=== PATIENT | female | born 1965 | race Caucasian/White ===

== ENCOUNTER 2017-12-29 00:07 | Emergency (ER) | payer BC ==
[~2017-12-29] VITALS: Ht 152.4 cm; Wt 68.0 kg
[~2017-12-29 00:07] MED LIST: NORC7.5T PO; ORPH100T PO
[2017-12-29] MEDS ORDERED: IOHEXOL 350 MG/ML 10 ML VIAL (for RAD DIAG) IVCONTRAST ONE (00:08)
[2017-12-29 00:09] VITALS: BP 139/81; PULSE 59; RESP 18; TEMP 97.5; O2SAT 100
[2017-12-29] MEDS ORDERED: SODIUM CHLOR 0.9% 1000 ML INJ 1,000 ML IV SCH (00:41)
[2017-12-29] MEDS ORDERED: SODIUM CHLORIDE 0.9% FLUSH 10 ML FLUSH IV FLUSH PRN (00:45)
[2017-12-29] MEDS ORDERED: ONDANSETRON HCL 4 MG/2 ML VIAL IVP ONE (00:45)
[2017-12-29] MEDS ORDERED: HYDROmorphone HCL PF 2 MG/ML VIAL IVS ONE (00:45)
--- NOTE | 2017-12-29 00:48 | PD ---
HPI Chief Complaint: Abdominal Pain Time Seen by Provider: 00:35 Travel History International Travel<30 days: No Contact w/Intl Traveler<30days: No Traveled to known affect area: No History of Present Illness HPI The patient is a 52-year-old female who complains of right flank/right upper quadrant pain for a week. She states she has had her gallbladder out but she has occasional episodes were stones form and the ducts and she has this pain. The pain is sharp, aching and the level of 9/10. She has been nauseated and vomited for the first time yesterday afternoon. She denies vomiting any blood. PFSH Past Medical History Arthritis: Yes (GENEVIEVE OF FINGERS) Blood Disorders: No Anxiety: No Depression: No Cancer: No Cardiovascular Problems: No High Cholesterol: Yes (Mgmt with diet) Diminished Hearing: No Endocrine: No Gastrointestinal Disorders: Yes (CAN'T TAKE ANYTHING ON EMPTY STOMACH, VOMITS IMMEDIATELY) GERD: Yes Genitourinary: Yes Neurologic: No Psychiatric: No Respiratory: No Tetanus Vaccination: Unknown Influenza Vaccination: Yes ?: Not Past Surgical History Abdominal Surgery: Yes (GALL BLADDER) Section: Yes Cholecystectomy: Yes Gynecologic Surgery: Yes (X2 C-SECTIONS) Oral Surgery: Yes (TONSILS) Tonsillectomy: Yes Social History Alcohol Use: No Tobacco Use: No Substance Use: No Allergies-Medications (Allergen,Severity, Reaction): Coded Allergies: No Known Allergies (Verified Allergy, Unknown, 12/29/17) Reported Meds & Prescriptions Reported Meds & Active Scripts Active Prochlorperazine Maleate 10 Mg Tab 10 Mg PO Q6H PRN Percocet (Oxycodone-Acetaminophen) 5-325 mg Tab 1-2 Tab PO Q4H PRN Norflex (Orphenadrine Citrate) 100 Mg Gladis 100 Mg PO BID Hammond 7.5-325 mg (Hydrocodone-Acetaminophen 7.5-325 mg) 7.5 Mg/325 Mg Tab 1 Tab PO Q4 PRN Review of Systems Except as stated in HPI: all other systems reviewed are Neg Physical Exam Narrative GENERAL: The patient is alert, oriented 3 in severe apparent distress with her abdominal discomfort. Her vital signs show temperature 97.5, pulse 59 but are otherwise normal. SKIN: Focused skin assessment warm/dry. HEAD: Atraumatic. Normocephalic. EYES: Pupils equal and round. No scleral icterus. No injection or drainage. ENT: No nasal bleeding or discharge. Mucous membranes pink and moist. NECK: Trachea midline. No JVD. CARDIOVASCULAR: Regular rate and rhythm. No murmur appreciated. RESPIRATORY: No accessory muscle use. Clear to auscultation. Breath sounds equal bilaterally. GASTROINTESTINAL: Abdomen soft, with tenderness to direct palpation in the right upper quadrant, nondistended. Hepatic and splenic margins not palpable. No guarding or rebound is present. MUSCULOSKELETAL: No obvious deformities. No clubbing. No cyanosis. No edema. NEUROLOGICAL: Awake and alert. No obvious cranial nerve deficits. Motor grossly within normal limits. Normal speech. PSYCHIATRIC: Appropriate mood and affect; insight and judgment normal. Data Data Last Documented VS Vital Signs Date Time Temp Pulse Resp B/P (MAP) Pulse Ox O2 Delivery O2 Flow Rate FiO2 12/29/17 01:42 87 16 101/55 (70) 96 Room Air 12/29/17 00:09 97.5 Orders Orders Complete Blood Count With Diff (12/29/17 00:41) Comprehensive Metabolic Panel (12/29/17 00:41) Lipase (12/29/17 00:41) Urinalysis - C+S If Indicated (12/29/17 00:41) Iv Access Insert/Monitor (12/29/17 00:41) Ecg Monitoring (12/29/17 00:41) Oximetry (12/29/17 00:41) Hydromorphone Pf Inj (Dilaudid Pf Inj) (12/29/17 00:45) Ondansetron Inj (Zofran Inj) (12/29/17 00:45) Sodium Chlor 0.9% 1000 Ml Inj (Ns 1000 M (12/29/17 00:41) Sodium Chloride 0.9% Flush (Ns Flush) (12/29/17 00:45) Ct Abd/Pel W Iv Contrast(Rout) (12/29/17 00:43) Ketorolac Inj (Toradol Inj) (12/29/17 01:00) Iohexol 350 Inj (Omnipaque 350 Inj) (12/29/17 00:08) Labs Laboratory Tests Test 12/29/17 00:25 White Blood Count 8.7 TH/MM3 Red Blood Count 4.61 MIL/MM3 Hemoglobin 14.0 GM/DL Hematocrit 42.3 % Mean Corpuscular Volume 91.8 FL Mean Corpuscular Hemoglobin 30.4 PG Mean Corpuscular Hemoglobin Concent 33.2 % Red Cell Distribution Width 13.2 % Platelet Count 251 TH/MM3 Mean Platelet Volume 9.8 FL Neutrophils (%) (Auto) 64.3 % Lymphocytes (%) (Auto) 26.5 % Monocytes (%) (Auto) 7.1 % Eosinophils (%) (Auto) 0.7 % Basophils (%) (Auto) 1.4 % Neutrophils # (Auto) 5.6 TH/MM3 Lymphocytes # (Auto) 2.3 TH/MM3 Monocytes # (Auto) 0.6 TH/MM3 Eosinophils # (Auto) 0.1 TH/MM3 Basophils # (Auto) 0.1 TH/MM3 CBC Comment DIFF FINAL Differential Comment Blood Urea Nitrogen 11 MG/DL Creatinine 0.62 MG/DL Random Glucose 111 MG/DL Total Protein 8.0 GM/DL Albumin 3.5 GM/DL Calcium Level 8.7 MG/DL Alkaline Phosphatase 419 U/L Aspartate Amino Transf (AST/SGOT) 256 U/L Alanine Aminotransferase (ALT/SGPT) 587 U/L Total Bilirubin 4.5 MG/DL Sodium Level 136 MEQ/L Potassium Level 3.6 MEQ/L Chloride Level 101 MEQ/L Carbon Dioxide Level 27.5 MEQ/L Anion Gap 8 MEQ/L Estimat Glomerular Filtration Rate 101 ML/MIN Lipase 238 U/L MDM Medical Decision Making Medical Screen Exam Complete: Yes Emergency Medical Condition: Yes Medical Record Reviewed: Yes Interpretation(s) The CBC is normal. The complete metabolic profile shows a total bilirubin of 4.5, AST of 256, ALT of 587 and alkaline phosphatase of 419 but is otherwise normal. The lipase is normal. The CT abdomen/pelvis with IV contrast shows a cholecystectomy with biliary ductal dilatation to about 1 cm. There is also mild intrahepatic biliary ductal dilatation. Also noted is a 2.6 cm left adnexal cystic appearing lesion. Differential Diagnosis Pancreatic ductal obstruction, liver ductal obstruction, urinary stone, urinary tract infection Narrative Course It is now 011 9 in the morning and the patient feels fine, she is completely free of pain and nausea. The fact that her liver enzymes are dramatically elevated indicates that she probably had a ductal obstruction within the liver. A suggestion of liver ductal obstruction is also made by the CAT scan with its dilated biliary ductal system. Diagnosis Primary Impression: Bile duct obstruction, intrahepatic Additional Instructions: As we discussed, Call your roofing contractor Saturday morning. Do not drink alcohol or drive if you take the Percocet. The Compazine can also make you somewhat sleepy and dizzy. Avoid fatty foods. Make sure you drink plenty of clear liquids. If the pain recurs, return to the emergency department. Med/Other Pt SpecificInfo: Prescription(s) given Scripts Prochlorperazine Maleate (Prochlorperazine Maleate) 10 Mg Tab 10 MG PO Q6H Y for NAUSEA OR VOMITING, #30 TAB 0 Refills Prov: Chris Mcfadden MD 12/29/17 Oxycodone-Acetaminophen (Percocet) 5-325 mg Tab 1-2 TAB PO Q4H Y for PAIN, #30 TAB 0 Refills Prov: Chris Mcfadden MD 12/29/17 Disposition: 01 DISCHARGE HOME Condition: Stable Chris Mcfadden MD Dec 29, 2017 00:48
[2017-12-29] MEDS ORDERED: KETOROLAC TROMETHAMINE 60 MG/2 ML (IM) VIAL IVP ONE (01:00)
[2017-12-29 01:06] LABS: AUTOMATED NEUTROPHIL # 5.6 TH/MM3 (1.8-7.7); BASOPHIL # 0.1 TH/MM3 (0-0.2); BASOPHIL % 1.4 % (0.0-2.0); EOSINOPHIL # 0.1 TH/MM3 (0-0.4); EOSINOPHIL % 0.7 % (0.0-4.0); HEMATOCRIT 42.3 % (35.0-46.0); LYMPH % 26.5 % (9.0-44.0); LYMPHOCYTE # 2.3 TH/MM3 (1.0-4.8); MEAN CELL VOLUME 91.8 FL (80.0-100.0); MEAN CORPUSCULAR HEMOGLOBIN 30.4 PG (27.0-34.0); MEAN CORPUSCULAR HGB CONC 33.2 % (32.0-36.0); MEAN PLATELET VOLUME 9.8 FL (7.0-11.0); MONO % 7.1 % (0.0-8.0); MONOCYTE # 0.6 TH/MM3 (0-0.9); NEUT % 64.3 % (16.0-70.0); PLATELET COUNT 251 TH/MM3 (150-450); RED BLOOD COUNT 4.61 MIL/MM3 (4.00-5.30); RED CELL DISTRIBUTION WIDTH 13.2 % (11.6-17.2); WHITE BLOOD COUNT 8.7 TH/MM3 (4.0-11.0)
[2017-12-29 01:09] VITALS: BP 154/81; PULSE 69; RESP 16; O2SAT 100
[2017-12-29 01:14] LABS: CHLORIDE 101 MEQ/L (98-107); SODIUM (NA) 136 MEQ/L (136-145)
[2017-12-29 01:18] LABS: ALBUMIN 3.5 GM/DL (3.4-5.0); BICARBONATE 27.5 MEQ/L (21.0-32.0); CALCIUM 8.7 MG/DL (8.5-10.1); GLUCOSE,RANDOM 111 MG/DL (74-106)
[2017-12-29 01:19] LABS: BLOOD UREA NITROGEN 11 MG/DL (7-18)
[2017-12-29 01:21] LABS: ALT (GPT) 587 U/L (10-53); AST (GOT) 256 U/L (15-37); CREATININE 0.62 MG/DL (0.50-1.00); GLOMERULAR FILTRATION RATE 101 ML/MIN (>89)
[2017-12-29 01:23] LABS: TOTAL BILIRUBIN ADULT 4.5 MG/DL (0.2-1.0)
[2017-12-29 01:24] LABS: ALKALINE PHOSPHATASE 419 U/L (45-117)
[2017-12-29 01:42] VITALS: BP 101/55; PULSE 87; RESP 16; O2SAT 96
[2017-12-29] MEDS ORDERED: PROC10TA PO (01:46)
[2017-12-29] MEDS ORDERED: PERC5TAB12 PO (01:46)
--- NOTE | 2017-12-29 02:04 | RADRPT ---
EXAM DATE/TIME: 12/29/2017 01:26 [facility] COMPARISON: No previous studies available for comparison. INDICATIONS : Patient complains of right flank and right upper quadrant pain for one week. IV CONTRAST: 90 cc Omnipaque 350 (iohexol) IV ORAL CONTRAST: No oral contrast ingested. RADIATION DOSE: 10.14 CTDIvol (mGy) MEDICAL HISTORY : Hypercholesterolemia. SURGICAL HISTORY : Cholecystectomy. ENCOUNTER: Initial ACUITY: 1 week PAIN SCALE: 9/10 LOCATION: Right flank upper quad TECHNIQUE: Volumetric scanning of the abdomen and pelvis was performed. Using automated exposure control and ad justment of the mA and/or kV according to patient size, radiation dose was kept as low as reasonably achievable to obtain optimal diagnostic quality images. DICOM format image data is available electro nically for review and comparison. FINDINGS: Lung bases are clear. Spleen, adrenals, kidneys and pancreas unremarkable. Previous cholecystectomy w ith biliary ductal dilatation. Common bile duct measures up to about 1 cm diameter. No free fluid. No bowel obstruction. No adenopathy. Small fat containing umbilical hernia. Within the pelvis there is a 2.6 cm left adnexal cystic appearing lesion. No other pelvic mass. No fr ee fluid or free air. CONCLUSION: 1. 2.6 cm left adnexal cyst. 2. Cholecystectomy with biliary ductal dilatation to about 1 cm. There is also mild intrahepatic bili blas ductal dilatation. Fortunato Dotson MD on December 29, 2017 at 1:58 Board Certified Radiologist. This report was verified electronically.
[2017-12-29 02:49] VITALS: BP 96/56
== END 2017-12-29 02:59 | disposition home or self-care (01) ==
LOC: PHED 00:07
DX: K83.1 Obstruction of bile duct (principal); E78.00 Pure hypercholesterolemia, unspecified; K21.9 Gastro-esophageal reflux disease without esophagitis; Z79.899 Other long term (current) drug therapy
CPT/HCPCS: 74177; 80053; 83690; 85025; 96361; 96374; 96375; 99284; J1170; J1885; J2405; J7030; Q9967

== ENCOUNTER 2017-12-29 20:55 | Inpatient (IN) | payer BC ==
[~2017-12-29] VITALS: Ht 152.4 cm; Wt 70.0 kg
[~2017-12-29 20:55] MED LIST changes: +PERC5TAB12 PO; +PROC10TA PO
[2017-12-29 20:59] VITALS: BP 153/91; PULSE 61; RESP 20; TEMP 97.7; O2SAT 100
[2017-12-29] MEDS ORDERED: ONDANSETRON HCL 4 MG/2 ML VIAL IVP ONE (21:15)
[2017-12-29] MEDS ORDERED: SODIUM CHLORIDE 0.9% FLUSH 10 ML FLUSH IV FLUSH PRN (21:15)
[2017-12-29] MEDS ORDERED: SODIUM CHLOR 0.9% 1000 ML INJ 1,000 ML IV SCH (21:15)
[2017-12-29] MEDS ORDERED: HYDROmorphone HCL PF 2 MG/ML VIAL IVS ONE (21:15)
--- NOTE | 2017-12-29 21:17 | PD ---
HPI Chief Complaint: Abdominal Pain Time Seen by Provider: 21:06 Travel History International Travel<30 days: No Contact w/Intl Traveler<30days: No Traveled to known affect area: No History of Present Illness HPI The patient is a 52-year-old female who was seen yesterday and was found to have intrahepatic biliary obstruction. She complains of abdominal pain that began at 2:30 PM this afternoon. After the pain medication yesterday she was pain-free and wanted to go home. She is willing to be admitted at this time. 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 Thompson. Her primary care physician is Dr. Toussaint. The patient had a cholecystectomy approximately 20 years ago. PFSH Past Medical History Arthritis: Yes (GENEVIEVE OF FINGERS) Blood Disorders: No Anxiety: No Depression: No Cancer: No Cardiovascular Problems: No High Cholesterol: Yes (Mgmt with diet) Diminished Hearing: No Endocrine: No Gastrointestinal Disorders: Yes (CAN'T TAKE ANYTHING ON EMPTY STOMACH, VOMITS IMMEDIATELY) GERD: Yes Genitourinary: Yes Neurologic: No Psychiatric: No Respiratory: No Past Surgical History Abdominal Surgery: Yes (GALL BLADDER) Section: Yes Cholecystectomy: Yes Gynecologic Surgery: Yes (X2 C-SECTIONS) Oral Surgery: Yes (TONSILS) Tonsillectomy: Yes Social History Alcohol Use: No Tobacco Use: No Substance Use: No Allergies-Medications (Allergen,Severity, Reaction): Coded Allergies: No Known Allergies (Verified Allergy, Unknown, 12/29/17) Reported Meds & Prescriptions Reported Meds & Active Scripts Active No Active Prescriptions or Reported Medications Review of Systems Except as stated in HPI: all other systems reviewed are Neg Physical Exam Narrative GENERAL: The patient is alert, oriented 3 in moderate apparent distress with her abdominal discomfort. The blood pressure is 153/91 but the rest the vital signs are normal. SKIN: Focused skin assessment warm/dry. HEAD: Atraumatic. Normocephalic. EYES: Pupils equal and round. No scleral icterus. No injection or drainage. ENT: No nasal bleeding or discharge. Mucous membranes pink and moist. NECK: Trachea midline. No JVD. CARDIOVASCULAR: Regular rate and rhythm. No murmur appreciated. RESPIRATORY: No accessory muscle use. Clear to auscultation. Breath sounds equal bilaterally. GASTROINTESTINAL: Abdomen soft, with tenderness to direct palpation in the right upper quadrant, nondistended. Hepatic and splenic margins not palpable. No guarding or rebound is present. MUSCULOSKELETAL: No obvious deformities. No clubbing. No cyanosis. No edema. NEUROLOGICAL: Awake and alert. No obvious cranial nerve deficits. Motor grossly within normal limits. Normal speech. PSYCHIATRIC: Appropriate mood and affect; insight and judgment normal. Data Data Last Documented VS Orders Orders Complete Blood Count With Diff (12/29/17 21:08) Comprehensive Metabolic Panel (12/29/17 21:08) Lipase (12/29/17 21:08) Prothrombin Time / Inr (Pt) (12/29/17 21:08) Act Partial Throm Time (Ptt) (12/29/17 21:08) Urinalysis - C+S If Indicated (12/29/17 21:08) Iv Access Insert/Monitor (12/29/17 21:08) Ecg Monitoring (12/29/17 21:08) Oximetry (12/29/17 21:08) Hydromorphone Pf Inj (Dilaudid Pf Inj) (12/29/17 21:15) Ondansetron Inj (Zofran Inj) (12/29/17 21:15) Sodium Chloride 0.9% Flush (Ns Flush) (12/29/17 21:15) Sodium Chlor 0.9% 1000 Ml Inj (Ns 1000 M (12/29/17 21:15) Urine Culture (12/29/17 21:15) Admit Order (Ed Use Only) (12/29/17 21:59) Labs Laboratory Tests Test 12/29/17 21:15 12/29/17 21:20 Urine Color YELLOW Urine Turbidity CLEAR Urine pH 7.0 Urine Specific [place] 1.017 Urine Protein NEG mg/dL Urine Glucose (UA) NEG mg/dL Urine Ketones TRACE mg/dL Urine Occult Blood NEG Urine Nitrite NEG Urine Bilirubin MOD Urine Leukocyte Esterase SMALL Urine WBC 9-14 /hpf Urine Squamous Epithelial Cells 6-8 /hpf Urine Bacteria OCC /hpf Urine Mucus OCC /lpf Microscopic Urinalysis Comment CULTURE INDICATED White Blood Count 7.4 TH/MM3 Red Blood Count 4.43 MIL/MM3 Hemoglobin 14.0 GM/DL Hematocrit 40.6 % Mean Corpuscular Volume 91.6 FL Mean Corpuscular Hemoglobin 31.7 PG Mean Corpuscular Hemoglobin Concent 34.6 % Red Cell Distribution Width 13.6 % Platelet Count 274 TH/MM3 Mean Platelet Volume 8.7 FL CBC Comment AUTO DIFF Differential Total Cells Counted 100 Neutrophils % (Manual) 59 % Band Neutrophils % 3 % Lymphocytes % 29 % Monocytes % 7 % Eosinophils % 2 % Neutrophils # (Manual) 4.6 TH/MM3 Differential Comment FINAL DIFF MANUAL Platelet Estimate NORMAL Platelet Morphology Comment NORMAL Red Cell Morphology Comment NORMAL Prothrombin Time 9.8 SEC Prothromb Time International Ratio 1.0 RATIO Activated Partial Thromboplast Time 23.0 SEC Blood Urea Nitrogen 8 MG/DL Creatinine 0.65 MG/DL Random Glucose 116 MG/DL Total Protein 7.7 GM/DL Albumin 3.3 GM/DL Calcium Level 8.3 MG/DL Alkaline Phosphatase 428 U/L Aspartate Amino Transf (AST/SGOT) 235 U/L Alanine Aminotransferase (ALT/SGPT) 544 U/L Total Bilirubin 6.5 MG/DL Sodium Level 135 MEQ/L Potassium Level 3.4 MEQ/L Chloride Level 102 MEQ/L Carbon Dioxide Level 26.2 MEQ/L Anion Gap 7 MEQ/L Estimat Glomerular Filtration Rate 95 ML/MIN Lipase 313 U/L [facility] Medical Decision Making Medical Screen Exam Complete: Yes Emergency Medical Condition: Yes Medical Record Reviewed: Yes Interpretation(s) The CBC is normal. The complete metabolic profile shows elevation of the liver enzymes. The lipase is normal. The urinalysis shows trace ketones, moderate bilirubin, small leukocyte esterase with 9-14 white cells and culture is indicated. Differential Diagnosis Intrahepatic ductal obstruction, common bile duct obstruction, hepatic tumor, choledocholithiasis Narrative Course The patient appears to have intrahepatic biliary obstruction with her elevated limbs or enzymes. She also has a urinary tract infection. The patient will be admitted to the [facility] service, Dr. Dueñas. Diagnosis Primary Impression: Choledocholithiasis Admitting Information Admitting Physician Requests: Admit Scripts No Active Prescriptions or Reported Meds Chris Mcfadden MD Dec 29, 2017 21:17
[2017-12-29 21:20] VITALS: RESP 18; O2SAT 100
[2017-12-29 21:31] VITALS: BP 145/78; PULSE 72; RESP 18; O2SAT 100
[2017-12-29 21:39] LABS: HEMATOCRIT 40.6 % (35.0-46.0); MEAN CELL VOLUME 91.6 FL (80.0-100.0); MEAN CORPUSCULAR HEMOGLOBIN 31.7 PG (27.0-34.0); MEAN CORPUSCULAR HGB CONC 34.6 % (32.0-36.0); MEAN PLATELET VOLUME 8.7 FL (7.0-11.0); PLATELET COUNT 274 TH/MM3 (150-450); RED BLOOD COUNT 4.43 MIL/MM3 (4.00-5.30); RED CELL DISTRIBUTION WIDTH 13.6 % (11.6-17.2); WHITE BLOOD COUNT 7.4 TH/MM3 (4.0-11.0)
[2017-12-29 21:40] LABS: BILIRUBIN, URINE MOD (NEG); BLOOD, URINE NEG (NEG); GLUCOSE,URINE NEG (NEG); KETONE, URINE TRACE mg/dL (NEG); NITRITE,URINE NEG (NEG); URINE LEUKOCYTE ESTERASE SMALL (NEG)
[2017-12-29 21:49] LABS: CHLORIDE 102 MEQ/L (98-107); SODIUM (NA) 135 MEQ/L (136-145)
[2017-12-29 21:52] LABS: CALCIUM 8.3 MG/DL (8.5-10.1)
[2017-12-29 21:53] LABS: ALBUMIN 3.3 GM/DL (3.4-5.0); BICARBONATE 26.2 MEQ/L (21.0-32.0); BLOOD UREA NITROGEN 8 MG/DL (7-18); GLUCOSE,RANDOM 116 MG/DL (74-106)
[2017-12-29 21:54] LABS: PROTHROMBIN TIME - PATIENT 9.8 SEC (9.8-11.6)
[2017-12-29 21:54] LABS: MUCUS URINE OCC /lpf (OCC); URINE COLOR YELLOW (YELLW/STRAW)
[2017-12-29 21:55] LABS: BACTERIA, URINE OCC /hpf
[2017-12-29 21:56] LABS: ALT (GPT) 544 U/L (10-53); AST (GOT) 235 U/L (15-37); CREATININE 0.65 MG/DL (0.50-1.00); GLOMERULAR FILTRATION RATE 95 ML/MIN (>89)
[2017-12-29 21:57] LABS: TOTAL BILIRUBIN ADULT 6.5 MG/DL (0.2-1.0); TOTAL PROTEIN 7.7 GM/DL (6.4-8.2)
[2017-12-29 21:59] LABS: ALKALINE PHOSPHATASE 428 U/L (45-117)
[2017-12-29 22:13] LABS: BANDS 3 % (0-6); LYMPHOCYTES 29 % (9-44); MONOCYTES 7 % (0-8); NEUTROPHIL # MANUAL DIFF 4.6 TH/MM3 (1.8-7.7); POLYS (SEG NEUTROPHILS) 59 % (16-70)
[2017-12-29 22:59] VITALS: BP 130/77; PULSE 71; RESP 18; O2SAT 98
[2017-12-30] VITALS (8 sets, daily range): BP systolic 129–166; BP diastolic 72–88; PULSE 57–77; RESP 18–20; TEMP 96.4–97.8; O2SAT 95–99
[2017-12-30] MEDS ORDERED: ONDANSETRON HCL 4 MG/2 ML VIAL IV ONE ×2 (00:30→12:00)
[2017-12-30] MEDS ORDERED: HYDROmorphone HCL PF 2 MG/ML VIAL IV PUSH ONE (00:30)
[2017-12-30] MEDS ORDERED: LACTULOSE SYRUP 20 GM/30 ML CUP PO PRN (02:30)
[2017-12-30] MEDS ORDERED: SENNOSIDES 8.6 MG TAB PO PRN (02:30)
[2017-12-30] MEDS ORDERED: MAGNESIUM HYDROXIDE SUSP 30 ML CUP PO PRN (02:30)
[2017-12-30] MEDS ORDERED: BISACODYL 10 MG SUPP RECTAL PRN (02:30)
[2017-12-30] MEDS ORDERED: NALOXONE HCL 0.4 MG/ML AMP IV PUSH PRN (02:30)
[2017-12-30] MEDS ORDERED: MORPHINE SULFATE 2 MG/ML INJ IV PUSH PRN (02:30)
[2017-12-30] MEDS ORDERED: SODIUM CHLORIDE 0.9% FLUSH 10 ML FLUSH IV FLUSH PRN (02:30)
[2017-12-30] MEDS ORDERED: ACETAMINOPHEN 325 MG TAB PO PRN (02:30)
[2017-12-30] MEDS: SODIUM CHLOR 0.9% 1000 ML INJ 1,000 ML IV SCH ×2 (03:04→14:58)
--- NOTE | 2017-12-30 03:04 | HHI.HP ---
[facility] Manny Toussaint MD Admission Diagnosis intrahepatic ductal obstruction Diagnoses: Travel History International Travel<30 Days: No Contact w/Intl Traveler <30 Da: No Traveled to Known Affected Are: No History of Present Illness 52-year-old female with past medical history significant for hyperlipidemia presents to the emergency department complaining of right upper quadrant abdominal pain. The patient reports her pain started early Saturday morning and she came to the emergency department for medication. She is status post cholecystectomy 20 years ago however is aware that she still produces stones. She is scheduled to have an outpatient procedure with her purchasing coordinator this week. The patient reports that the pain became so severe that she came to the emergency department. CT of the abdomen/pelvis significant for biliary dilation. After receiving pain medication, the patient left the ED to follow- up with her purchasing coordinator. She returned home when yesterday afternoon the pain returned. She endorses emesis 1 and continuous nausea and anorexia. No associated diarrhea. No fever/chills. No chest pain or shortness of breath. She filled her oral pain medication however her pain was not relieved. She returned to the emergency department for further evaluation and workup. Review of Systems Except as stated in HPI: all other systems reviewed are Neg Past Family Social History Past Medical History Hyperlipidemia Past Surgical History Cholecystectomy 20 years ago 2 Tonsillectomy Reported Medications Reported Meds & Active Scripts Active Prochlorperazine Maleate 10 Mg Tab 10 Mg PO Q6H PRN Percocet (Oxycodone-Acetaminophen) 5-325 mg Tab 1-2 Tab PO Q4H PRN Allergies: Coded Allergies: No Known Allergies (Verified Allergy, Unknown, 12/29/17) Family History Father with CAD Social History Denies alcohol, tobacco and illicit drugs Physical Exam Vital Signs Vital Signs Date Time Temp Pulse Resp B/P (MAP) Pulse Ox O2 Delivery O2 Flow Rate FiO2 12/30/17 01:49 74 18 97 12/30/17 01:48 72 18 132/74 (93) 97 Room Air 12/30/17 00:25 72 18 136/77 (96) 98 Room Air 12/29/17 22:59 71 18 130/77 (94) 98 Room Air 12/29/17 21:31 72 18 145/78 (100) 100 Room Air 12/29/17 21:20 18 100 Room Air 12/29/17 21:09 18 12/29/17 20:59 97.7 61 20 153/91 (111) 100 Physical Exam GENERAL: female sitting up in bed SKIN: No rashes, ecchymoses or lesions. Cool and dry. HEAD: Atraumatic. Normocephalic. No temporal or scalp tenderness. EYES: Pupils equal round and reactive. Extraocular motions intact. No scleral icterus. No injection or drainage. ENT: Nose without bleeding, purulent drainage or septal hematoma. Throat without erythema, tonsillar hypertrophy or exudate. Uvula midline. Airway patent. NECK: Trachea midline. No JVD or lymphadenopathy. Supple, nontender, no meningeal signs. CARDIOVASCULAR: Regular rate and rhythm without murmurs, gallops, or rubs. RESPIRATORY: Clear to auscultation. Breath sounds equal bilaterally. No wheezes , rales, or rhonchi. GASTROINTESTINAL: Abdomen soft, exquisitely tender to palpation in the right upper quadrant, nondistended. No hepato-splenomegaly, or palpable masses. No guarding. MUSCULOSKELETAL: Extremities without clubbing, cyanosis, or edema. No joint tenderness, effusion, or edema noted. No calf tenderness. NEUROLOGICAL: Awake and alert. Cranial nerves II through XII intact. Motor and sensory grossly within normal limits. Normal speech. Laboratory Laboratory Tests Test 12/29/17 21:15 12/29/17 21:20 Urine Color YELLOW Urine Turbidity CLEAR Urine pH 7.0 Urine Specific Hanna 1.017 Urine Protein NEG Urine Glucose (UA) NEG Urine Ketones TRACE Urine Occult Blood NEG Urine Nitrite NEG Urine Bilirubin MOD Urine Leukocyte Esterase SMALL Urine WBC 9-14 Urine Squamous Epithelial Cells 6-8 Urine Bacteria OCC Urine Mucus OCC Microscopic Urinalysis Comment CULTURE INDICATED White Blood Count 7.4 Red Blood Count 4.43 Hemoglobin 14.0 Hematocrit 40.6 Mean Corpuscular Volume 91.6 Mean Corpuscular Hemoglobin 31.7 Mean Corpuscular Hemoglobin Concent 34.6 Red Cell Distribution Width 13.6 Platelet Count 274 Mean Platelet Volume 8.7 CBC Comment AUTO DIFF Differential Total Cells Counted 100 Neutrophils % (Manual) 59 Band Neutrophils % 3 Lymphocytes % 29 Monocytes % 7 Eosinophils % 2 Neutrophils # (Manual) 4.6 Differential Comment FINAL DIFF MANUAL Platelet Estimate NORMAL Platelet Morphology Comment NORMAL Red Cell Morphology Comment NORMAL Prothrombin Time 9.8 Prothromb Time International Ratio 1.0 Activated Partial Thromboplast Time 23.0 Blood Urea Nitrogen 8 Creatinine 0.65 Random Glucose 116 Total Protein 7.7 Albumin 3.3 Calcium Level 8.3 Alkaline Phosphatase 428 Aspartate Amino Transf (AST/SGOT) 235 Alanine Aminotransferase (ALT/SGPT) 544 Total Bilirubin 6.5 Sodium Level 135 Potassium Level 3.4 Chloride Level 102 Carbon Dioxide Level 26.2 Anion Gap 7 Estimat Glomerular Filtration Rate 95 Lipase 313 Date/Time Source Procedure Growth Status 12/29/17 21:15 Urine Clean Catch Urine Culture Pending Received Result Diagram: 12/29/17211912/29/172119 [place] VTE Risk Assessment [place] VTE Risk Assessment: No/Low Risk (score <= 1) Caprini Risk Assessment Model Point Value = 1 Point Value = 2 Point Value = 3 Point Value = 5 Age 41-60 Minor surgery BMI > 25 kg/m2 Swollen legs Varicose veins or History of unexplained or recurrent spontaneous Oral contraceptives or hormone replacement Sepsis (< 1 month) Serious lung disease, including pneumonia (< 1 month) Abnormal pulmonary function Acute myocardial infarction Congestive heart failure (< 1 month) History of inflammatory bowel disease Medical patient at bed rest Age 61-74 Arthroscopic surgery Major open surgery (> 45 min) Laparoscopic surgery (> 45 min) Malignancy Confined to bed (> 72 hours) Immobilizing plaster cast Central venous access Age >= 75 History of VTE Family history of VTE Factor V Leiden Prothrombin [id number] Lupus anticoagulant Anticardiolipin antibodies Elevated serum homocysteine Heparin-induced thrombocytopenia Other congenital or acquired thrombophilia Stroke (< 1 month) Elective arthroplasty Hip, pelvis, or leg fracture Acute spinal cord injury (< 1 month) Prophylaxis Regimen Total Risk Factor Score Risk Level Prophylaxis Regimen 0-1 Low Early ambulation 2 Moderate Order ONE of the following: *Sequential Compression Device (SCD) *Heparin 5000 units SQ BID 3-4 Higher Order ONE of the following medications: *Heparin 5000 units SQ TID *Enoxaparin/Lovenox 40 mg SQ daily (WT < 150 kg, CrCl > 30 mL/min) *Enoxaparin/Lovenox 30 mg SQ daily (WT < 150 kg, CrCl > 10-29 mL/min) *Enoxaparin/Lovenox 30 mg SQ BID (WT < 150 kg, CrCl > 30 mL/min) AND/OR *Sequential Compression Device (SCD) 5 or more Highest Order ONE of the following medications: *Heparin 5000 units SQ TID (Preferred with Epidurals) *Enoxaparin/Lovenox 40 mg SQ daily (WT < 150 kg, CrCl > 30 mL/min) *Enoxaparin/Lovenox 30 mg SQ daily (WT < 150 kg, CrCl > 10-29 mL/min) *Enoxaparin/Lovenox 30 mg SQ BID (WT < 150 kg, CrCl > 30 mL/min) AND *Sequential Compression Device (SCD) Assessment and Plan Assessment and Plan Assessment/plan: 1. Intrahepatic biliary obstruction/transaminitis CT of the abdomen/pelvis significant for dilated biliary duct with intrahepatic biliary duct dilatation Gastroenterology consulted for possible ERCP later today Nothing by mouth Morphine for pain IV fluids 2. Hyperlipidemia Controlled with diet FEN Nothing by mouth NS at 80 cc/hour Electrolytes: Status post by mouth potassium repletion, follow-up BMP SCDs Physician Certification 2 Midnight Certification Type: Admission for Inpatient Services Order for Inpatient Services The services are ordered in accordance with Medicare regulations or non- Medicare payer requirements, as applicable. In the case of services not specified as inpatient-only, they are appropriately provided as inpatient services in accordance with the 2-midnight benchmark. Estimated LOS (days): 2 2 days is the estimated time the patient will need to remain in the hospital, assuming treatment plan goals are met and no additional complications. Post-Hospital Plan: Not yet determined Kylee Dueñas MD Dec 30, 2017 03:04
[2017-12-30] MEDS ORDERED: POTASSIUM CHLORIDE 20 MEQ CONTROLLED RELEASE TAB PO ONE (03:15)
[2017-12-30] MEDS: ONDANSETRON HCL 4 MG/2 ML VIAL IVP PRN ×2 (05:59→11:47)
[2017-12-30] MEDS: SODIUM CHLORIDE 0.9% FLUSH 10 ML FLUSH IV FLUSH SCH ×2 (08:21→22:13)
[2017-12-30] MEDS: DOCUSATE SODIUM 50 MG/SENNA 8.6 MG TAB PO SCH ×3 (08:21→22:15)
[2017-12-30] MEDS ORDERED: HYDROmorphone HCL PF 1 MG/ML VIAL IV PUSH PRN (09:00)
[2017-12-30] MEDS: HYDROmorphone HCL PF 2 MG/ML VIAL IV PUSH PRN ×2 (09:19→13:33)
--- NOTE | 2017-12-30 09:30 | MB ---
Cc: MALIK CONWAY MDDOROTHYEDIALIYA Espinoza DATE OF CONSULTATION 12/30/2017 REFERRING PHYSICIAN Kylee Dueñas MD REASON FOR CONSULTATION Right upper quadrant pain and dilated bile duct. HISTORY This is a very pleasant 52-year-old female who was seen in the office this past Saturday, December 27, by Dr. Thompson for an approximately 6-day history of intermittent epigastric pain. The pain would typically start in the epigastric region and the radiate to the right upper quadrant after eating. The pain would come and go. She was given lab work to check her LFTs as well as lipase and amylase. She went to the emergency room over the weekend in [place] because of this pain. Her bilirubin was over 4 and her other liver enzymes were also elevated. She underwent a CT scan that showed a 1-cm common bile duct. The patient had her gallbladder removed about 20 years ago. She also reportedly had an ultrasound of her abdomen a few weeks ago where her bile duct was measured at 7 mm. The patient did not want to stay in the ED and responded to pain medication according to the ER physician, Dr. Mcfadden. She was discharged home but came back yesterday with the same pain. Her bilirubin is higher, approximately 6.5 and she was subsequently admitted. She has no fever or chills. She has some slight nausea but no vomiting. The pain does improve with analgesics but then comes back. She currently is having significant pain on a scale of 1-10; it is a 7. It tends to crescendo and then let up. SOCIAL HISTORY The patient is . She has two grown children. She is a former smoker. No alcohol use. MEDICATIONS Her medications include - 1. Dicyclomine p.r.n. 2. Ondansetron p.r.n. 3. She was given Dexilant samples in the office this past Saturday. MEDICAL HISTORY Unremarkable. She denies any diabetes, hypertension or heart disease. She states she has had a high cholesterol but was able to bring it down with diet and exercise. PAST SURGICAL HISTORY 1. She has had two C-sections in 1992 and 1993. 2. She had an open cholecystectomy about 20 years ago or more. ALLERGIES She has no known drug allergies. FAMILY HISTORY Her mother had ovarian cancer, otherwise negative. REVIEW OF SYSTEMS Remarkable for the abdominal pain is described above, otherwise a negative 10-point review of systems. PHYSICAL EXAMINATION GENERAL: A well-developed female who is in obvious distress from being in pain. VITAL SIGNS: Her blood pressure is 163/88, pulse 57, respirations are 19 and nonlabored, temperature is 96.9 orally. HEENT: Sclerae and is weakly icteric. SKIN: Warm and dry. LUNGS: Clear to auscultation. CARDIOVASCULAR: Heart sounds are regular without murmur, gallop or rub. ABDOMEN: Soft with a well-healed right upper quadrant scar. She has moderate tenderness in the right upper quadrant with some mild guarding but no rebound. RECTAL: Deferred. EXTREMITIES: No cyanosis, clubbing or edema. NEUROLOGIC: She was alert and oriented with no gross motor deficits. LABORATORY FINDINGS Her white count is 7.4 with an unremarkable differential. Hemoglobin 14, platelet count 274,000. INR is 1.0, PTT is 23. Her potassium was 3.4, sodium 135, bilirubin 6.5, AST 235, ALT 544, alk phos 428, albumin 3.3 and lipase was normal at 313. IMAGING STUDIES Abdominal and pelvic CT scan which was done December 29 at 01:26 a.m. This showed previous cholecystectomy with a common bile duct up to 1 cm and also mild intrahepatic biliary ductal dilatation. Urinalysis showed small leukocyte esterase, 9-14 WBCs and culture is pending. I IMPRESSION 1. Right upper quadrant pain with biliary obstruction. The patient most likely has common bile duct stone or stones. Bile duct is dilated with a significant elevation of LFTs including jaundice. PLAN We will adjust her pain medication accordingly. She is currently n.p.o.. I discussed the case with Dr. Thompson and the patient is scheduled for ERCP for later this afternoon. I reviewed the risks of ERCP including bleeding, infection, perforation and the risk of pancreatitis. The benefits and alternatives were discussed. Her questions were answered and informed consent obtained. Thank you for this consult. MD ROMULO Hammond/KASIE /8:34 AM /8:46 AM ARA
--- NOTE | 2017-12-30 10:25 | HHI.PR ---
Subjective Remarks Pt seen and examined this morning. AFVSS. States abdominal pain is well- controlled. Endorses some nausea but no more vomiting. Denies CP or SOB. Going for ERCP later this afternoon. Objective Vitals Vital Signs Date Time Temp Pulse Resp B/P (MAP) Pulse Ox O2 Delivery O2 Flow Rate FiO2 12/30/17 08:00 96.9 57 19 163/88 (113) 98 12/30/17 02:57 96.4 74 18 151/82 (105) 99 12/30/17 01:49 74 18 97 12/30/17 01:48 72 18 132/74 (93) 97 Room Air 12/30/17 00:25 72 18 136/77 (96) 98 Room Air 12/29/17 22:59 71 18 130/77 (94) 98 Room Air 12/29/17 21:31 72 18 145/78 (100) 100 Room Air 12/29/17 21:20 18 100 Room Air 12/29/17 21:09 18 12/29/17 20:59 97.7 61 20 153/91 (111) 100 I/O 12/29/17 12/29/17 12/29/17 12/30/17 12/30/17 12/30/17 07:00 15:00 23:00 07:00 15:00 23:00 Intake Total 1000 ml 310 ml 0 ml Balance 1000 ml 310 ml 0 ml Intake Oral 0 ml 0 ml IV Total 1000 ml 310 ml # Voids 1 # Bowel Movements 0 Result Diagram: 12/29/17211912/29/172119 Imaging CT abdomen/pelvis 12/29/17 1. 2.6 cm left adnexal cyst 2. Cholecystectomy with biliary ductal dilatation to about 1 cm. There is also mild intrahepatic biliary ductal dilation Objective Remarks GENERAL: WN, WD female laying comfortably in bed in NAD. SKIN: Warm and dry. No jaundice appreciated. HEENT: Pupils equal and round. MMM. Very subtle scleral icterus. NECK: Supple no tender LAD or JVD. HEART: RRR no m/r/g. LUNGS: CTAB without wheezes or crackles. ABDOMEN: +BS. Soft, NT, ND. EXTREMITIES: No LE edema or calf tenderness. NEURO: Awake and alert. PSYCH: Appropriate mood and affect. A/P Problem List: (1) Abdominal pain ICD Code: R10.9 - Unspecified abdominal pain (2) Dilation of biliary tract ICD Code: K83.8 - Other specified diseases of biliary tract (3) Transaminitis ICD Code: R74.0 - Nonspecific elevation of levels of transaminase and lactic acid dehydrogenase [LDH] (4) Hyperbilirubinemia ICD Code: E80.6 - Other disorders of bilirubin metabolism Assessment and Plan 52 year old female presented with RUQ abdominal pain, nausea, and vomiting and found to have biliary ductal dilation on imaging and labs concerning for an obstruction. 1. RUQ abdominal pain - CT abdomen demonstrated biliary ductal dilation to 1 cm with mild intrahepatic biliary dilation - S/P prior cholecystectomy - AST, ALT, alk phos, and bilirubin all elevated suggestive of an obstructive process - GI consulted, planning for ERCP today - NPO, antiemetics, pain control, and IV fluids 2. DVT prophylaxis - Held for procedure 3. FEN - NPO for procedure - Monitor electrolytes Sharifa Bartlett MD Dec 30, 2017 10:25
[2017-12-30] MEDS ORDERED: PHENYLEPH/NS 1000 MCG/10 ML SYR IV ONE (12:00)
[2017-12-30] MEDS ORDERED: ROCURONIUM INJ 50 MG/5 ML SYRINGE IV PUSH ONE (12:00)
[2017-12-30] MEDS ORDERED: DEXAMETHASONE SOD PHOS 4 MG/ML VIAL IV ONE (12:00)
[2017-12-30] MEDS ORDERED: LIDOCAINE HCL 1% PF 5 ML SYRINGE OTHER ONE (12:00)
[2017-12-30] MEDS ORDERED: PROPOFOL 200 MG/20 ML AMP IV ONE (12:00)
[2017-12-30] MEDS ORDERED: SUCCINYLCHOLINE CHLORIDE 200 MG/10 ML VIAL IV ONE (12:00)
--- NOTE | 2017-12-30 17:23 | GIPROC ---
[employer] [address] [facility]. [facility], [id number] ERCP PROCEDURE REPORT EXAM DATE: 12/30/2017 PATIENT NAME: Antonia Soler MR #: [id number] BIRTHDATE: 1965 ATTENDING: George Thompson MD ORDER #: [id number] SEDIMENT REMEDIATION CONSULTANT: Van Villalobos and Padmaja Young STATUS: inpatient INDICATIONS: The patient is a 52 yr old female here for an ERCP due to upper abdomiinal pain, jaundice, elevated bilirubin, dilated bile duct by CT PROCEDURE PERFORMED: EGD with dilation of a stenotic pylorus ERCP with sphincterotomy/papillotomy ERCP with removal of calculus/calculi MEDICATIONS: None and Per Anesthesia. CONSENT: The patient understands the risks and benefits of the procedure and understands that these risks include, but are not limited to: sedation, allergic reaction, infection, perforation and/or bleeding. Alternative means of evaluation and treatment include, among others: physical exam, x-rays, and/or surgical intervention. The patient elects to proceed with this endoscopic procedure. medical equipment was checked for proper function. Hand hygiene and appropriate measures for infection prevention was taken. After the risks, benefits and alternatives of the procedure were thoroughly explained, Informed was verified, confirmed and timeout was successfully executed by the treatment team. With the patient in left semi-prone position, medications were administered intravenously.The Pentax [id number] was passed from the mouth into the esophagus and further advanced from the esophagus into the stomach. From stomach scope was directed to the second portion of the duodenum. Major papilla was aligned with the duodenoscope. The scope position was confirmed fluoroscopically. Rest of the findings/therapeutics are given below. The scope was then completely withdrawn from the patient and the procedure completed. The pulse, BP, and O2 saturation were monitored and documented by the physician and the nursing staff throughout the entire procedure. The patient was cared for as planned according to standard protocol. The patient was then discharged to recovery in stable condition and with appropriate post procedure care. The ampulla was bulging. Two stones were seen in the distal common bile duct. With guidewire in the bile duct, a large biliary sphincterotomy was performed using the sphincterotome. Using a stone extraction balloon the bile duct was swept three times. Two stones were removed from the bile duct successfully. The duct was flushed with saline and a final cholangiogram revealed no residual filling defects and excellent drainage was noted endoscopically and fluoroscopically. ADVERSE EVENT: There were no complications. IMPRESSIONS: The ampulla was bulging NL esophagus and stomach Stenotic pylorus, dilated to 18mm using an Olympus 19-19-20mm hydrostatic balloon NL duodenal mucosa Mildly dilated biliary tree with two small stoned noted distally 12 mm sphincterotomy made and stones extracted with an 11.5mm extraction balloon. Good drainage upon completion with no residual filling defects. RECOMMENDATIONS: Return to floor. NPO until 19:30, then clear liquids if no nausea, emesis or pain. Resume prior orders. REPEAT EXAM: NONE George Thompson MD eSigned: George Thompson MD 12/30/2017 5:23 PM cc: Manny Toussaint PATIENT NAME: Antoina Soler MR#: [id number]
[2017-12-30] MEDS ORDERED: DO NOT ADM ANY ANTICOAGULANT DRUGS PRN (17:24)
--- NOTE | 2017-12-30 17:39 | RADRPT ---
EXAM DATE/TIME: 12/30/2017 17:07 [facility] COMPARISON: CT ABDOMEN & PELVIS W CONTRAST, December 29, 2017, 1:26. INDICATIONS : Intrahepatic ductal obstruction. FLUORO TIME: 1.8 minutes IMAGE COUNT: 3 CONTRAST: Instilled by Ordering Physician MEDICAL HISTORY : Hypercholesterolemia. SURGICAL HISTORY : Cholecystectomy. ENCOUNTER: Initial ACUITY: 1 day PAIN SCORE: Non-responsive. LOCATION: Right flank upper quad FINDINGS: An ERCP was performed by the ordering physician. The images demonstrate opacification of the common bile duct on the initial image with small filling defects distally near the ampulla. These appear more eccentric on the second image with incomplete op acification of the common bile duct. Contrast is noted extending to the duodenum. On the final image, the common bile duct is no longer opacified. CONCLUSION: ERCP as above. Mauri Collier MD on December 30, 2017 at 17:36 Board Certified Radiologist. This report was verified electronically.
[2017-12-31 01:52] VITALS: BP 118/56; PULSE 71; RESP 18; TEMP 97.6; O2SAT 97
[2017-12-31] MEDS: SODIUM CHLOR 0.9% 1000 ML INJ 1,000 ML IV SCH ×2 (03:55→21:00)
[2017-12-31 04:00] VITALS: BP 108/55; PULSE 71; RESP 18; TEMP 97.9; O2SAT 97
[2017-12-31 08:00] VITALS: BP 114/67; PULSE 67; RESP 20; TEMP 97.7; O2SAT 97
[2017-12-31 08:47] LABS: ALBUMIN 2.7 GM/DL (3.4-5.0); AST (GOT) 363 U/L (15-37); BICARBONATE 27.9 MEQ/L (21.0-32.0); BLOOD UREA NITROGEN 6 MG/DL (7-18); CALCIUM 8.2 MG/DL (8.5-10.1); CHLORIDE 106 MEQ/L (98-107); CREATININE 0.64 MG/DL (0.50-1.00); GLOMERULAR FILTRATION RATE 97 ML/MIN (>89); GLUCOSE,RANDOM 95 MG/DL (74-106); SODIUM (NA) 140 MEQ/L (136-145)
[2017-12-31 08:48] LABS: ALT (GPT) 533 U/L (10-53)
[2017-12-31 08:50] LABS: ALKALINE PHOSPHATASE 508 U/L (45-117); TOTAL BILIRUBIN ADULT 8.1 MG/DL (0.2-1.0); TOTAL PROTEIN 6.5 GM/DL (6.4-8.2)
[2017-12-31] MEDS: SODIUM CHLORIDE 0.9% FLUSH 10 ML FLUSH IV FLUSH SCH ×2 (09:00→21:00)
[2017-12-31] MEDS: DOCUSATE SODIUM 50 MG/SENNA 8.6 MG TAB PO SCH ×2 (09:46→21:00)
--- NOTE | 2017-12-31 10:04 | HHI.GIFU ---
GI Follow-up Note Consult Follow-up Subjective: Patient laying in bed comfortably, abd pain completely resolved. No nausea. C/O headache and moderate sore throat. Objective: PHYSICAL EXAMINATION: Vitals signs stable No fever ABDOMEN: Soft, nondistended, nontender SKIN: warm and dry RADIOLOGY TRANSCRIPTIONIST: No focal deficits; alert and oriented times three. Available Data (labs, X- Rays, Procedues) : Laboratory Tests Test 12/29/17 21:15 12/29/17 21:20 12/31/17 07:46 Urine Ketones TRACE mg/dL (NEG) Urine Bilirubin MOD (NEG) Urine Leukocyte Esterase SMALL (NEG) Urine WBC 9-14 /hpf (0-5) Urine Squamous Epithelial Cells 6-8 /hpf (0-5) Urine Bacteria OCC /hpf (NONE) Activated Partial Thromboplast Time 23.0 SEC (24.3-30.1) Random Glucose 116 MG/DL (74-106) Albumin 3.3 GM/DL (3.4-5.0) 2.7 GM/DL (3.4-5.0) Calcium Level 8.3 MG/DL (8.5-10.1) 8.2 MG/DL (8.5-10.1) Alkaline Phosphatase 428 U/L (45-117) 508 U/L (45-117) Aspartate Amino Transf (AST/SGOT) 235 U/L (15-37) 363 U/L (15-37) Alanine Aminotransferase (ALT/SGPT) 544 U/L (10-53) 533 U/L (10-53) Total Bilirubin 6.5 MG/DL (0.2-1.0) 8.1 MG/DL (0.2-1.0) Sodium Level 135 MEQ/L (136-145) Potassium Level 3.4 MEQ/L (3.5-5.1) Blood Urea Nitrogen 6 MG/DL (7-18) ASSESSMENT/PLAN: 1. Choledocholithiasis-s/p ERCP w/ sphincterotomy and stone extraction by Dr Thompson. Not sure why LFTs higher but should come down. Will advance diet and recheck in am. If improving can discharge home. It was a pleasure seeing Antonia Soler. Thank you for this consult. Entered by: Jarett Torrez MD Dec 31, 2017 10:04
[2017-12-31 11:47] VITALS: O2SAT 97
[2017-12-31 12:00] VITALS: BP 149/63; PULSE 83; RESP 19; TEMP 97.5; O2SAT 99
[2017-12-31] MEDS ORDERED: ACETAMINOPHEN 325 MG TAB PO PRN (15:15)
--- NOTE | 2017-12-31 15:20 | HHI.PR ---
Subjective Remarks The patient states that the abdominal pain has resolved. Denies fevers or chills. States felt nauseous earlier today however that has resolved. Tolerating diet. Complaint of headache earlier to RN. Objective Vitals Vital Signs Date Time Temp Pulse Resp B/P (MAP) Pulse Ox O2 Delivery O2 Flow Rate FiO2 12/31/17 12:00 97.5 83 19 149/63 (91) 99 12/31/17 11:47 97 Nasal Cannula 2.00 12/31/17 08:00 97.7 67 20 114/67 (83) 97 12/31/17 04:00 97.9 71 18 108/55 (72) 97 12/31/17 01:52 97.6 71 18 118/56 (76) 97 12/30/17 22:34 95 Nasal Cannula 2.00 12/30/17 20:26 96.7 73 20 129/72 (91) 96 12/30/17 17:45 70 21 132/68 (89) 98 Nasal Cannula 2 12/30/17 17:30 84 20 145/76 (99) 100 Nasal Cannula 2 12/30/17 17:20 98.1 71 20 155/85 (108) 100 Nasal Cannula 2 12/30/17 16:00 97.4 77 19 166/86 (112) 98 I/O 12/30/17 12/30/17 12/30/17 12/31/17 12/31/17 12/31/17 06:59 14:59 22:59 06:59 14:59 22:59 Intake Total 310 ml 0 ml 450 ml 1000 ml 240 ml Output Total 600 ml Balance 310 ml 0 ml -150 ml 1000 ml 240 ml Intake Oral 0 ml 0 ml 0 ml 240 ml IV Total 310 ml 1000 ml Other 450 ml Output Urine Total 600 ml # Voids 1 # Bowel Movements 0 0 Result Diagram: 12/29/17211912/31/17 0746 Imaging Last Impressions GI Procedure 12/30/17 0000 Signed Impressions: Service Date/Time: Saturday, December 30, 2017 17:07 - CONCLUSION: ERCP as above. Mauri Collier MD Objective Remarks GENERAL: female sitting up in bed SKIN: No rashes, ecchymoses or lesions. Cool and dry. HEAD: Atraumatic. Normocephalic. No temporal or scalp tenderness. EYES: Pupils equal round and reactive. Extraocular motions intact. Scleral icterus present. No injection or drainage. ENT: Nose without bleeding, purulent drainage or septal hematoma. Throat without erythema, tonsillar hypertrophy or exudate. Uvula midline. Airway patent. NECK: Trachea midline. No JVD or lymphadenopathy. Supple, nontender, no meningeal signs. CARDIOVASCULAR: Regular rate and rhythm without murmurs, gallops, or rubs. RESPIRATORY: Clear to auscultation. Breath sounds equal bilaterally. No wheezes , rales, or rhonchi. GASTROINTESTINAL: Abdomen soft, exquisitely tender to palpation in the right upper quadrant, nondistended. No hepato-splenomegaly, or palpable masses. No guarding. MUSCULOSKELETAL: Extremities without clubbing, cyanosis, or edema. No joint tenderness, effusion, or edema noted. No calf tenderness. NEUROLOGICAL: Awake and alert. Cranial nerves II through XII intact. Motor and sensory grossly within normal limits. Normal speech. Medications and IVs Current Medications Medications (Trade) Dose Ordered Sig/Ashtyn Route Start Time Stop Time Status Last Admin Sodium Chloride 1,000 ml @ 80 mls/hr [id number] IV 12/30/17 02:28 12/31/17 03:55 (NS Flush) 2 ml UNSCH PRN IV FLUSH 12/30/17 02:30 (NS Flush) 2 ml BID IV FLUSH 12/30/17 09:00 (Tylenol) 650 mg Q4H PRN PO 12/30/17 02:30 12/31/17 04:31 (Zofran Inj) 4 mg Q6H PRN IVP 12/30/17 02:30 12/30/17 11:47 (Narcan Inj) 0.4 mg UNSCH PRN IV PUSH 12/30/17 02:30 (Heidi-Colace) 1 tab BID PO 12/30/17 09:00 12/31/17 09:46 (Milk Of Magnesia Liq) 30 ml Q12H PRN PO 12/30/17 02:30 (Senokot) 17.2 mg Q12H PRN PO 12/30/17 02:30 (Dulcolax Supp) 10 mg DAILY PRN RECTAL 12/30/17 02:30 (Lactulose Liq) 30 ml DAILY PRN PO 12/30/17 02:30 (Morphine Inj) 2 mg Q4H PRN IV PUSH 12/30/17 02:30 Future Hold 12/30/17 05:59 (Dilaudid Pf Inj) 0.5 mg Q3HR PRN IV PUSH 12/30/17 09:30 12/30/17 13:33 Miscellaneous Information ALL NURSING DEPARTME... UNSCH PRN .XX 12/30/17 17:24 12/31/17 17:23 A/P Problem List: (1) Abdominal pain ICD Code: R10.9 - Unspecified abdominal pain Status: Resolved (2) Dilation of biliary tract ICD Code: K83.8 - Other specified diseases of biliary tract Status: Acute (3) Transaminitis ICD Code: R74.0 - Nonspecific elevation of levels of transaminase and lactic acid dehydrogenase [LDH] Status: Acute (4) Hyperbilirubinemia ICD Code: E80.6 - Other disorders of bilirubin metabolism Status: Acute Assessment and Plan Assessment/plan: 1. Intrahepatic biliary obstruction/transaminitis CT of the abdomen/pelvis significant for dilated biliary duct with intrahepatic biliary duct dilatation Gastroenterology consulted. Initially placed npo. Morphine as needed for pain. 12/31 Choledocholithiasis-s/p ERCP w/ sphincterotomy and stone extraction by Dr Thompson. Not sure why LFTs higher but should come down. Will advance diet and recheck in am. 2. Hyperlipidemia Controlled with diet 3. Headache Will Rx ibuprofen as needed. Avoid acetaminophen given transaminitis. FEN Nothing by mouth NS at 80 cc/hour Electrolytes: Status post by mouth potassium repletion, follow-up BMP SCDs Discharge Planning Possible Dc in am if Lft's better. Rafiq Garza MD Dec 31, 2017 15:20
[2017-12-31 16:00] VITALS: BP 116/68; PULSE 77; RESP 19; TEMP 97.2; O2SAT 99
[2018-01-01] VITALS (7 sets, daily range): BP systolic 120–140; BP diastolic 64–76; PULSE 64–85; RESP 16–18; TEMP 95.7–98.2; O2SAT 97–100
[2018-01-01] MEDS: IBUPROFEN 400 MG TAB PO PRN ×3 (00:35→21:37)
[2018-01-01] MEDS: SODIUM CHLOR 0.9% 1000 ML INJ 1,000 ML IV SCH ×2 (05:20→16:35)
[2018-01-01 07:46] LABS: TOTAL BILIRUBIN ADULT 7.1 MG/DL (0.2-1.0); TOTAL PROTEIN 6.2 GM/DL (6.4-8.2)
[2018-01-01 07:52] LABS: ALBUMIN 2.4 GM/DL (3.4-5.0); DIRECT BILIRUBIN ADULT 4.7 MG/DL (0.0-0.2); INDIRECT BILIRUBIN 2.4 MG/DL (0.0-0.8)
[2018-01-01] MEDS: DOCUSATE SODIUM 50 MG/SENNA 8.6 MG TAB PO SCH ×2 (08:56→21:34)
[2018-01-01] MEDS: SODIUM CHLORIDE 0.9% FLUSH 10 ML FLUSH IV FLUSH SCH ×2 (08:56→21:00)
[2018-01-01] MEDS: ONDANSETRON HCL 4 MG/2 ML VIAL IVP PRN (13:15)
--- NOTE | 2018-01-01 22:48 | HHI.PR ---
Subjective Remarks Deferred entry - patient seen at 11 am. Patient is tolerating diet. Denies nausea or vomiting Afebrile. States did not feel weel earlier in am but cannot explain well what she felt. Objective Vitals Vital Signs Date Time Temp Pulse Resp B/P (MAP) Pulse Ox O2 Delivery O2 Flow Rate FiO2 01/01/18 20:00 95.7 65 16 140/69 (92) 100 01/01/18 18:21 98 Nasal Cannula 2.00 01/01/18 16:00 97.5 67 17 135/71 (92) 97 01/01/18 12:00 98.0 64 17 135/64 (87) 98 01/01/18 09:32 99 Nasal Cannula 2.00 01/01/18 08:00 97.7 85 16 120/76 (91) 99 01/01/18 00:00 98.2 84 18 129/72 (91) 98 I/O 12/31/17 12/31/17 12/31/17 01/01/18 01/01/18 01/01/18 07:00 15:00 23:00 07:00 15:00 23:00 Intake Total 1000 ml 240 ml 1000 ml 1240 ml 240 ml Output Total 850 ml Balance 1000 ml 240 ml 150 ml 1240 ml 240 ml Intake Oral 240 ml 1000 ml 240 ml 240 ml IV Total 1000 ml 1000 ml Output Urine Total 850 ml # Voids 8 # Bowel Movements 1 0 Result Diagram: 12/29/17211912/31/17 0746 Imaging Last Impressions GI Procedure 12/30/17 0000 Signed Impressions: Service Date/Time: Saturday, December 30, 2017 17:07 - CONCLUSION: ERCP as above. Mauri Collier MD Objective Remarks GENERAL: female sitting up in bed SKIN: No rashes, ecchymoses or lesions. Cool and dry. HEAD: Atraumatic. Normocephalic. No temporal or scalp tenderness. EYES: Pupils equal round and reactive. Extraocular motions intact. Scleral icterus present. No injection or drainage. ENT: Nose without bleeding, purulent drainage or septal hematoma. Throat without erythema, tonsillar hypertrophy or exudate. Uvula midline. Airway patent. NECK: Trachea midline. No JVD or lymphadenopathy. Supple, nontender, no meningeal signs. CARDIOVASCULAR: Regular rate and rhythm without murmurs, gallops, or rubs. RESPIRATORY: Clear to auscultation. Breath sounds equal bilaterally. No wheezes , rales, or rhonchi. GASTROINTESTINAL: Abdomen soft, exquisitely tender to palpation in the right upper quadrant, nondistended. No hepato-splenomegaly, or palpable masses. No guarding. MUSCULOSKELETAL: Extremities without clubbing, cyanosis, or edema. No joint tenderness, effusion, or edema noted. No calf tenderness. NEUROLOGICAL: Awake and alert. Cranial nerves II through XII intact. Motor and sensory grossly within normal limits. Normal speech. Medications and IVs Current Medications Medications (Trade) Dose Ordered Sig/Ashtyn Route Start Time Stop Time Status Last Admin Sodium Chloride 1,000 ml @ 80 mls/hr [id number] IV 12/30/17 02:28 01/01/18 05:20 (NS Flush) 2 ml UNSCH PRN IV FLUSH 12/30/17 02:30 (NS Flush) 2 ml BID IV FLUSH 12/30/17 09:00 (Zofran Inj) 4 mg Q6H PRN IVP 12/30/17 02:30 01/01/18 13:15 (Narcan Inj) 0.4 mg UNSCH PRN IV PUSH 12/30/17 02:30 (Heidi-Colace) 1 tab BID PO 12/30/17 09:00 01/01/18 21:34 (Milk Of Magnesia Liq) 30 ml Q12H PRN PO 12/30/17 02:30 (Senokot) 17.2 mg Q12H PRN PO 12/30/17 02:30 (Dulcolax Supp) 10 mg DAILY PRN RECTAL 12/30/17 02:30 (Lactulose Liq) 30 ml DAILY PRN PO 12/30/17 02:30 (Motrin) 400 mg Q8H PRN PO 12/31/17 18:00 01/01/18 21:37 A/P Problem List: (1) Abdominal pain ICD Code: R10.9 - Unspecified abdominal pain Status: Resolved (2) Dilation of biliary tract ICD Code: K83.8 - Other specified diseases of biliary tract Status: Acute (3) Transaminitis ICD Code: R74.0 - Nonspecific elevation of levels of transaminase and lactic acid dehydrogenase [LDH] Status: Acute (4) Hyperbilirubinemia ICD Code: E80.6 - Other disorders of bilirubin metabolism Status: Acute Assessment and Plan Assessment/plan: 1. Intrahepatic biliary obstruction/transaminitis CT of the abdomen/pelvis significant for dilated biliary duct with intrahepatic biliary duct dilatation Gastroenterology consulted. Initially placed npo. Morphine as needed for pain. 12/31 Choledocholithiasis-s/p ERCP w/ sphincterotomy and stone extraction by Dr Thompson. Not sure why LFTs higher but should come down. Will advance diet and recheck in am. 01/01 Lft's still elevated however trending down. Monitor Lft's. 2. Hyperlipidemia Controlled with diet 3. Headache Will Rx ibuprofen as needed. Avoid acetaminophen given transaminitis. FEN Nothing by mouth NS at 80 cc/hour Electrolytes: Status post by mouth potassium repletion, follow-up BMP SCDs Discharge Planning Possible Dc in am if Lft's better. Rafiq Garza MD Jan 01, 2018 22:48
[2018-01-02] VITALS: BP 124/81; PULSE 65; RESP 16; TEMP 97.9; O2SAT 98
[2018-01-02] MEDS: SODIUM CHLOR 0.9% 1000 ML INJ 1,000 ML IV SCH (02:57)
[2018-01-02 07:46] VITALS: BP 132/61; PULSE 65; RESP 18; TEMP 97; O2SAT 99
[2018-01-02 07:53] LABS: ALBUMIN 2.4 GM/DL (3.4-5.0); DIRECT BILIRUBIN ADULT 1.5 MG/DL (0.0-0.2); INDIRECT BILIRUBIN 1.3 MG/DL (0.0-0.8); TOTAL BILIRUBIN ADULT 2.8 MG/DL (0.2-1.0); TOTAL PROTEIN 6.4 GM/DL (6.4-8.2)
[2018-01-02] MEDS: DOCUSATE SODIUM 50 MG/SENNA 8.6 MG TAB PO SCH (09:37)
[2018-01-02] MEDS: SODIUM CHLORIDE 0.9% FLUSH 10 ML FLUSH IV FLUSH SCH (09:37)
[2018-01-02 12:00] VITALS: BP 139/68; PULSE 63; RESP 16; TEMP 97.4; O2SAT 100
--- NOTE | 2018-01-02 13:35 | HHI.DCPOC ---
Discharge Care Plan Goals to Promote Your Health * To prevent worsening of your condition and complications * To maintain your health at the optimal level Directions to Meet Your Goals Take your medications as prescribed Follow your dietary instruction Follow activity as directed Keep your appointments as scheduled Take your immunizations and boosters as scheduled If your symptoms worsen call your PCP, if no PCP go to Urgent Care Center or Emergency Room Smoking is Dangerous to Your Health. Avoid second hand smoke Call the 24-hour hour crisis hotline for domestic abuse at Rafiq Garza MD Jan 02, 2018 13:35
--- NOTE | 2018-01-02 13:46 | HHI.DS ---
Discharge Summary Admission Date Dec 29, 2017 at 22:01 Discharge Date: Jan 02, 2018 Admitting Diagnosis intrahepatic ductal obstruction (1) Abdominal pain ICD Code: R10.9 - Unspecified abdominal pain Diagnosis: Principal Status: Resolved (2) Dilation of biliary tract ICD Code: K83.8 - Other specified diseases of biliary tract Diagnosis: Principal Status: Acute (3) Transaminitis ICD Code: R74.0 - Nonspecific elevation of levels of transaminase and lactic acid dehydrogenase [LDH] Diagnosis: Principal Status: Acute (4) Hyperbilirubinemia ICD Code: E80.6 - Other disorders of bilirubin metabolism Diagnosis: Principal Status: Acute (5) Choledocholithiasis ICD Code: K80.50 - Calculus of bile duct without cholangitis or cholecystitis without obstruction Diagnosis: Principal Status: Resolved Procedures SP ERCP with sphincterotomy and balloon sweep. Brief History - From Admission 52-year-old female with past medical history significant for hyperlipidemia presents to the emergency department complaining of right upper quadrant abdominal pain. The patient reports her pain started early Saturday morning and she came to the emergency department for medication. She is status post cholecystectomy 20 years ago however is aware that she still produces stones. 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 The patient reports that the pain became so severe that she came to the emergency department. CT of the abdomen/pelvis significant for biliary dilation. After receiving pain medication, the patient left the ED to follow- up with her industrial workers. She returned home when yesterday afternoon the pain returned. She endorses emesis 1 and continuous nausea and anorexia. No associated diarrhea. No fever/chills. No chest pain or shortness of breath. She filled her oral pain medication however her pain was not relieved. She returned to the emergency department for further evaluation and workup. CBC/BMP: 12/29/17 2120 12/31/17 0746 Significant Findings Laboratory Tests Test 12/31/17 07:46 01/01/18 06:33 01/02/18 06:43 Blood Urea Nitrogen 6 MG/DL (7-18) Albumin 2.7 GM/DL (3.4-5.0) 2.4 GM/DL (3.4-5.0) 2.4 GM/DL (3.4-5.0) Calcium Level 8.2 MG/DL (8.5-10.1) Alkaline Phosphatase 508 U/L (45-117) 515 U/L (45-117) 521 U/L (45-117) Aspartate Amino Transf (AST/SGOT) 363 U/L (15-37) 288 U/L (15-37) 147 U/L (15-37) Alanine Aminotransferase (ALT/SGPT) 533 U/L (10-53) 508 U/L (10-53) 416 U/L (10-53) Total Bilirubin 8.1 MG/DL (0.2-1.0) 7.1 MG/DL (0.2-1.0) 2.8 MG/DL (0.2-1.0) Direct Bilirubin 4.7 MG/DL (0.0-0.2) 1.5 MG/DL (0.0-0.2) Indirect Bilirubin 2.4 MG/DL (0.0-0.8) 1.3 MG/DL (0.0-0.8) Total Protein 6.2 GM/DL (6.4-8.2) Imaging Last Impressions GI Procedure 12/30/17 0000 Signed Impressions: Service Date/Time: Saturday, December 30, 2017 17:07 - CONCLUSION: ERCP as above. Mauri Collier MD PE at Discharge GENERAL: female sitting up in bed SKIN: No rashes, ecchymoses or lesions. Cool and dry. HEAD: Atraumatic. Normocephalic. No temporal or scalp tenderness. EYES: Pupils equal round and reactive. Extraocular motions intact. Scleral icterus present. No injection or drainage. ENT: Nose without bleeding, purulent drainage or septal hematoma. Throat without erythema, tonsillar hypertrophy or exudate. Uvula midline. Airway patent. NECK: Trachea midline. No JVD or lymphadenopathy. Supple, nontender, no meningeal signs. CARDIOVASCULAR: Regular rate and rhythm without murmurs, gallops, or rubs. RESPIRATORY: Clear to auscultation. Breath sounds equal bilaterally. No wheezes , rales, or rhonchi. GASTROINTESTINAL: Abdomen soft, exquisitely tender to palpation in the right upper quadrant, nondistended. No hepato-splenomegaly, or palpable masses. No guarding. MUSCULOSKELETAL: Extremities without clubbing, cyanosis, or edema. No joint tenderness, effusion, or edema noted. No calf tenderness. NEUROLOGICAL: Awake and alert. Cranial nerves II through XII intact. Motor and sensory grossly within normal limits. Normal speech. Pt update on day of discharge The patient denies abdominal pain, nausea or vomiting. Patient denies fevers or chills. Transaminases and bilirubin are trending down. Total bilirubin is 2.8 AST is 147 ALT is 416. I went communicated with GI who cleared the patient for discharge. Hospital Course Assessment/plan: 1. Intrahepatic biliary obstruction/transaminitis CT of the abdomen/pelvis significant for dilated biliary duct with intrahepatic biliary duct dilatation. The patient was admitted to the medical floor, consult neurology consulted who placed the patient on n.p.o. and on morphine as needed for pain. The patient then underwent ERCP with sphincterotomy and stone extraction by Dr. Goodrich. LFTs slowly trended down and patient is tolerating diet without abdominal pain. 2. Hyperlipidemia Patient states is diet controlled. Follow-up as an outpatient. 3. Headache Treated with ibuprofen as needed. Avoided given the patient acetaminophen given elevated LFTs. 4. Hypokalemia. Status post oral repletion. BMP monitored throughout hospital stay. Pt Condition on Discharge: Stable Discharge Disposition: Discharge Home Discharge Time: <= 30 minutes Discharge Instructions DIET: Follow Instructions for: Low Fat Diet Activities you can perform: Regular-No Restrictions Follow up Referrals: Gastroenterology with Jarett Moctezuma MD Discontinued Medications: Oxycodone-Acetaminophen (Percocet) 5-325 mg Tab 1-2 TAB PO Q4H PRN for PAIN, #30 TAB 0 Refills Prochlorperazine Maleate (Prochlorperazine Maleate) 10 Mg Tab 10 MG PO Q6H PRN for NAUSEA OR VOMITING, #30 TAB 0 Refills Rafiq Garza MD Jan 02, 2018 13:46
== END 2018-01-02 16:31 | disposition home or self-care (01) | DRG 445 ==
LOC: PHED 20:55 → PHEDA 22:01 → N07B 12-30 02:23
PROVIDERS: ADMIT Hospitalist; ATTEND Hospitalist
PROC: 0D778ZZ Dilation of Stomach, Pylorus, Via Natural or Artificial Opening Endoscopic (ICD-10-PCS; 2017-12-30)
PROC: 0FC98ZZ Extirpation of Matter from Common Bile Duct, Via Natural or Artificial Opening Endoscopic (ICD-10-PCS; principal; 2017-12-30 16:29)
DX: K80.51 Calculus of bile duct without cholangitis or cholecystitis with obstruction (principal); K31.1 Adult hypertrophic pyloric stenosis; E78.5 Hyperlipidemia, unspecified; R74.0 Nonspecific elevation of levels of transaminase and lactic acid dehydrogenase [LDH]; R74.8 Abnormal levels of other serum enzymes; E87.6 Hypokalemia; M19.90 Unspecified osteoarthritis, unspecified site; K21.9 Gastro-esophageal reflux disease without esophagitis; E80.7 Disorder of bilirubin metabolism, unspecified; R51 Headache; Z90.49 Acquired absence of other specified parts of digestive tract; Z87.891 Personal history of nicotine dependence
CPT/HCPCS: 74330; 80053; 80076; 81001; 83690; 85007; 85027; 85610; 85730; 87086; C1726; C1769; J0330; J1100; J1170; J2270; J2370; J2405; J3010; J7030